=== PATIENT | male | born 2000 | race Caucasian/White ===

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

== ENCOUNTER 2022-11-25 14:09 | Emergency (ER) | payer OTHER ==
[~2022-11-25] VITALS: Ht 180.3 cm; Wt 106.8 kg
[2022-11-25 14:17] VITALS: TEMP 98.4
[2022-11-25] MEDS ORDERED: BACITRACIN 0.9 GM PACKET OINTMENT TP ONE (14:30)
[2022-11-25] MEDS ORDERED: LORazepam 1 MG TABLET PO ONE (14:45)
[2022-11-25 15:08] LABS: ANION GAP 9 mmol/L (8-16); CALCIUM, TOTAL 9.7 mg/dL (8.8-10.5); CARBON DIOXIDE 28 mmol/L (22-29); CHLORIDE 102 mmol/L (98-107); CREATININE 0.99 mg/dL (0.60-1.30); GLOMERULAR FILTR. RATE CALC > 60 mL/min (>60); GLUCOSE,RANDOM 121 mg/dL (70-110); SODIUM SERUM 139 mmol/L (136-145)
[2022-11-25 15:13] LABS: ALANINE AMINOTRANSFERASE 44 U/L (12-78); ALBUMIN 4.7 g/dL (3.4-5.0); ALKALINE PHOSPHATASE 74 U/L (46-116); ASPARTATE AMINOTRANSFERASE 30 U/L (15-37); BILIRUBIN,TOTAL 0.8 mg/dL (0.1-1.0); TOTAL PROTEIN, SERUM 8.6 g/dL (6.4-8.2)
[2022-11-25 15:13] LABS: AMPHET/METH SCREEN,URINE NEGATIVE (NEGATIVE); BARBITURATE SCREEN, URINE NEGATIVE (NEGATIVE); BENZODIAZEPINES SCREEN,URINE NEGATIVE (NEGATIVE); CANNABINOID SCREEN,URINE NEGATIVE (NEGATIVE); COCAINE SCREEN,URINE NEGATIVE (NEGATIVE); METHADONE SCREEN, URINE NEGATIVE (NEGATIVE); OPIATE SCREEN,URINE NEGATIVE (NEGATIVE); PHENCYCLIDINE SCREEN,URINE NEGATIVE (NEGATIVE)
[2022-11-25 15:16] LABS: BASOPHILS % (AUTO) 0.4 % (0.0-2.0); EOSINOPHILS % (AUTO) 0.5 % (1.0-6.0); HEMATOCRIT 49.7 % (41-53); HEMOGLOBIN 16.4 g/dL (13.5-17.5); LYMPHOCYTES # (AUTO) 1.6 K/uL (1.0-4.8); LYMPHOCYTES % (AUTO) 12.6 % (22.0-44.0); MEAN CORPUSCULAR HEMOGLOBIN 29.9 pg (26.0-34.0); MEAN CORPUSCULAR HGB CONC 32.9 G/dL (31.0-37.0); MEAN CORPUSCULAR VOLUME 91 fL (80-100); MONOCYTES # (AUTO) 0.6 K/uL (0.1-1.0); MONOCYTES % (AUTO) 4.9 % (2.0-9.0); NEUTROPHILS # (AUTO) 10.2 K/uL (1.8-7.7); NEUTROPHILS % (AUTO) 81.6 % (40.0-70.0); PLATELET COUNT (AUTO) 325 K/uL (150-450); RED BLOOD CELL COUNT(AUTO) 5.48 MIL/uL (4.50-5.90); RED CELL DISTRIBUTION WIDTH 13.5 % (11.5-14.5)
[2022-11-25 15:23] VITALS: BP 148/58; PULSE 89; RESP 14
[2022-11-25 15:46] LABS: INFLUENZA TYPE A NEGATIVE FOR TYPE A (NEGATIVE); INFLUENZA TYPE B NEGATIVE FOR TYPE B (NEGATIVE)
== END 2022-11-25 17:50 | disposition home or self-care (01) ==
LOC: EMS 14:17
DX: Z04.6 Encounter for general psychiatric examination, requested by authority (principal)
CPT/HCPCS: 80053; 80307; 85025; 87804; 99285

== ENCOUNTER 2022-11-25 15:23 | Inpatient (IN) | payer MEDICAID ==
[~2022-11-25] VITALS: Ht 182.9 cm; Wt 96.6 kg
[2022-11-25] MEDS ORDERED: HALOPERIDOL 5 MG TABLET PO PRN (19:15)
[2022-11-25] MEDS ORDERED: ZOLPIDEM TARTRATE 10 MG TABLET PO PRN (19:15)
[2022-11-25 19:30] VITALS: BP 152/79; PULSE 115; RESP 19; TEMP 98.4; O2SAT 97
[2022-11-25] MEDS ORDERED: NICOTINE 14 MG/24 HOUR PATCH TD PRN (20:45)
[2022-11-25] MEDS ORDERED: GuaiFENesin/D-METHORPHAN [SUGAR-FREE] 200-20MG/10 ML SYRUP UDCUP PO PRN (20:45)
[2022-11-25] MEDS ORDERED: LOPERAMIDE HCL 2 MG CAPSULE PO PRN (20:45)
[2022-11-25] MEDS ORDERED: PETROLATUM,WHITE 28 GM JELLY TP PRN (20:45)
[2022-11-25] MEDS ORDERED: DOCUSATE SODIUM 100 MG CAPSULE PO PRN (20:45)
[2022-11-25] MEDS ORDERED: CloNIDine HCL 0.1 MG TABLET PO PRN (20:45)
[2022-11-25] MEDS ORDERED: MAGNESIUM HYDROXIDE SUSPENSION 30 ML UDCUP PO PRN (20:45)
[2022-11-25] MEDS ORDERED: ONDANSETRON HCL 4 MG TABLET PO PRN (20:45)
[2022-11-25] MEDS ORDERED: MAG HYDROX/AL HYDROX/SIMETH ES 30 ML SUSPENSION UDCUP PO PRN (20:45)
[2022-11-25] MEDS ORDERED: ALBUTEROL SULFATE HFA 90 MCG/PUFF 8 GM INHALER IH PRN (20:45)
[2022-11-25] MEDS: LORazepam 2 MG TABLET PO PRN (23:59)
[2022-11-26 08:03] VITALS: BP 118/64; PULSE 95; RESP 18; TEMP 97.8; O2SAT 98
[2022-11-26] MEDS: IBUPROFEN 400 MG TABLET PO PRN ×2 (08:06→16:13)
[2022-11-26] MEDS: ACETAMINOPHEN 325 MG TABLET PO PRN (12:13)
[2022-11-26] MEDS: LORazepam 2 MG TABLET PO PRN (12:14)
[2022-11-26 16:13] VITALS: RESP 18
[2022-11-26 17:13] VITALS: RESP 16
[2022-11-26] MEDS: QUEtiapine FUMARATE 200 MG TABLET PO SCH (20:00)
[2022-11-26 20:13] VITALS: BP 120/62; PULSE 80; RESP 18; TEMP 98; O2SAT 98
[2022-11-27 07:46] LABS: BASOPHILS % (AUTO) 0.3 % (0.0-2.0); EOSINOPHILS % (AUTO) 1.2 % (1.0-6.0); HEMATOCRIT 45.2 % (41-53); HEMOGLOBIN 14.8 g/dL (13.5-17.5); LYMPHOCYTES # (AUTO) 2.5 K/uL (1.0-4.8); LYMPHOCYTES % (AUTO) 17.3 % (22.0-44.0); MEAN CORPUSCULAR HEMOGLOBIN 29.9 pg (26.0-34.0); MEAN CORPUSCULAR HGB CONC 32.8 G/dL (31.0-37.0); MEAN CORPUSCULAR VOLUME 91 fL (80-100); MONOCYTES # (AUTO) 0.6 K/uL (0.1-1.0); MONOCYTES % (AUTO) 4.2 % (2.0-9.0); PLATELET COUNT (AUTO) 244 K/uL (150-450); RED BLOOD CELL COUNT(AUTO) 4.95 MIL/uL (4.50-5.90); RED CELL DISTRIBUTION WIDTH 13.1 % (11.5-14.5)
[2022-11-27 08:03] VITALS: RESP 18
[2022-11-27] MEDS: MULTIVITAMINS WITH MINERALS, THERAPEUTIC TABLET PO SCH (08:03)
[2022-11-27] MEDS: LORazepam 2 MG TABLET PO PRN (08:03)
[2022-11-27] MEDS: ACETAMINOPHEN 325 MG TABLET PO PRN ×2 (08:03→16:34)
[2022-11-27 08:04] VITALS: BP 142/75; PULSE 106; RESP 20; TEMP 98.3; O2SAT 100
[2022-11-27 08:14] LABS: ALANINE AMINOTRANSFERASE 37 U/L (12-78); ALBUMIN 3.9 g/dL (3.4-5.0); ALKALINE PHOSPHATASE 62 U/L (46-116); ANION GAP 10 mmol/L (8-16); ASPARTATE AMINOTRANSFERASE 20 U/L (15-37); BILIRUBIN,TOTAL 0.9 mg/dL (0.1-1.0); CALCIUM, TOTAL 8.8 mg/dL (8.8-10.5); CARBON DIOXIDE 30 mmol/L (22-29); CHLORIDE 100 mmol/L (98-107); CHOL/HDL RATIO 3.5 (4.2-7.3); CHOLESTEROL 124 mg/dL (131-200); CREATININE 0.98 mg/dL (0.60-1.30); FREE T4 (FREE THYROXINE) 0.96 ng/dL (0.76-1.46); GLOMERULAR FILTR. RATE CALC > 60 mL/min (>60); GLUCOSE,RANDOM 128 mg/dL (70-110); HDL CHOLESTEROL 35 mg/dL (40-60); LDL CHOL (CALC.) 60 mg/dL (0-130); POTASSIUM 3.1 mmol/L (3.5-5.1); SODIUM SERUM 140 mmol/L (136-145); THYROID STIMULATING HORMONE 2.67 uIU/mL (0.36-3.74); TOTAL PROTEIN, SERUM 7.4 g/dL (6.4-8.2); TRIGLYCERIDES 147 mg/dL (15-150)
[2022-11-27 09:03] VITALS: RESP 16
[2022-11-27] MEDS ORDERED: POTASSIUM CHLORIDE 20 MEQ ER TABLET PO ONE (10:45)
[2022-11-27 16:34] VITALS: RESP 17
[2022-11-27 17:34] VITALS: RESP 16
[2022-11-27] MEDS: QUEtiapine FUMARATE 200 MG TABLET PO SCH (20:16)
[2022-11-27 21:24] VITALS: BP 140/87; PULSE 96; RESP 17; TEMP 98.3; O2SAT 99
[2022-11-28] MEDS: IBUPROFEN 400 MG TABLET PO PRN (06:51)
[2022-11-28 08:48] VITALS: BP 144/64; PULSE 67; RESP 18; TEMP 97.9; O2SAT 99
[2022-11-28] MEDS: MULTIVITAMINS WITH MINERALS, THERAPEUTIC TABLET PO SCH (09:46)
[2022-11-28] MEDS: QUEtiapine FUMARATE 200 MG TABLET PO SCH (20:28)
[2022-11-28 21:58] VITALS: BP 137/80; PULSE 90; RESP 18; TEMP 97.9; O2SAT 99
[2022-11-29] MEDS: MULTIVITAMINS WITH MINERALS, THERAPEUTIC TABLET PO SCH (08:44)
[2022-11-29 09:04] VITALS: BP 148/76; PULSE 100; RESP 17; TEMP 97.5; O2SAT 95
[2022-11-29] MEDS: LORazepam 2 MG TABLET PO PRN (10:34)
[2022-11-29 20:10] VITALS: BP 138/78; PULSE 90; RESP 18; TEMP 97.8; O2SAT 97
[2022-11-29] MEDS: QUEtiapine FUMARATE 200 MG TABLET PO SCH (20:35)
[2022-11-30 08:12] VITALS: BP 139/91; PULSE 97; RESP 19; TEMP 97.7; O2SAT 98
[2022-11-30 08:12] LABS: BASOPHILS % (AUTO) 0.7 % (0.0-2.0); EOSINOPHILS % (AUTO) 1.5 % (1.0-6.0); HEMATOCRIT 43.4 % (41-53); HEMOGLOBIN 14.6 g/dL (13.5-17.5); LYMPHOCYTES # (AUTO) 2.4 K/uL (1.0-4.8); LYMPHOCYTES % (AUTO) 33.5 % (22.0-44.0); MEAN CORPUSCULAR HEMOGLOBIN 30.6 pg (26.0-34.0); MEAN CORPUSCULAR HGB CONC 33.6 G/dL (31.0-37.0); MEAN CORPUSCULAR VOLUME 91 fL (80-100); MONOCYTES # (AUTO) 0.6 K/uL (0.1-1.0); MONOCYTES % (AUTO) 9.1 % (2.0-9.0); NEUTROPHILS # (AUTO) 3.9 K/uL (1.8-7.7); NEUTROPHILS % (AUTO) 55.2 % (40.0-70.0); PLATELET COUNT (AUTO) 247 K/uL (150-450); RED BLOOD CELL COUNT(AUTO) 4.77 MIL/uL (4.50-5.90)
[2022-11-30] MEDS: MULTIVITAMINS WITH MINERALS, THERAPEUTIC TABLET PO SCH (08:32)
[2022-11-30] MEDS: LORazepam 2 MG TABLET PO PRN (10:12)
[2022-11-30 20:25] VITALS: BP 132/70; PULSE 81; RESP 18; TEMP 98.1; O2SAT 97
[2022-11-30] MEDS: QUEtiapine FUMARATE 200 MG TABLET PO SCH (20:29)
[2022-12-01 08:06] VITALS: BP 132/74; PULSE 84; RESP 17; TEMP 97.7; O2SAT 98
[2022-12-01] MEDS: LORazepam 2 MG TABLET PO PRN (08:39)
[2022-12-01] MEDS: MULTIVITAMINS WITH MINERALS, THERAPEUTIC TABLET PO SCH (08:39)
[2022-12-01 20:13] VITALS: BP 120/77; PULSE 90; RESP 18; TEMP 98.3; O2SAT 96
[2022-12-01] MEDS: QUEtiapine FUMARATE 200 MG TABLET PO SCH (20:31)
[2022-12-02 08:17] VITALS: BP 140/75; PULSE 77; RESP 17; TEMP 97.6; O2SAT 100
[2022-12-02] MEDS: LORazepam 2 MG TABLET PO PRN (09:01)
[2022-12-02] MEDS: MULTIVITAMINS WITH MINERALS, THERAPEUTIC TABLET PO SCH (09:17)
[2022-12-02] MEDS ORDERED: QUET200T PO (18:56)
[2022-12-02] MEDS ORDERED: TRAZ-252 PO (18:56)
[2022-12-02] MEDS: QUEtiapine FUMARATE 200 MG TABLET PO SCH (20:41)
[2022-12-02] MEDS ORDERED: TraZODone HCL 50 MG TABLET PO SCH (21:00)
[2022-12-02 21:16] VITALS: BP 142/99; PULSE 91; RESP 18; TEMP 97.1; O2SAT 96
[2022-12-03 08:03] VITALS: BP 138/93; PULSE 84; RESP 18; TEMP 98; O2SAT 100
[2022-12-03] MEDS: MULTIVITAMINS WITH MINERALS, THERAPEUTIC TABLET PO SCH (08:05)
[2022-12-03] MEDS ORDERED: QUET200T30 PO (10:09)
[2022-12-03] MEDS ORDERED: TRAZ-252 PO (10:09)
== END 2022-12-03 19:00 | disposition home or self-care (01) | DRG 750 ==
LOC: B2S 19:13
PROVIDERS: ADMIT Psychiatry & Neurology Child & Adolescent Psychiatry; ATTEND Psychiatry & Neurology Child & Adolescent Psychiatry
DX: F25.1 Schizoaffective disorder, depressive type (principal); R45.851 Suicidal ideations; D72.829 Elevated white blood cell count, unspecified; F41.9 Anxiety disorder, unspecified; G47.00 Insomnia, unspecified; E87.6 Hypokalemia
CPT/HCPCS: 80053; 80061; 83036; 84132; 84439; 84443; 85025; Q0162

== ENCOUNTER 2023-10-09 03:24 | Inpatient (IN) | payer MEDICAID ==
[~2023-10-09] VITALS: Ht 182.9 cm; Wt 120.7 kg
[~2023-10-09 03:24] MED LIST: QUET200T PO; QUET200T30 PO; TRAZ-252 PO
[2023-10-09 08:21] LABS: GLUCOMETER DEV NAME(LOC) POC.BV; POC SARS-COV2 AG, FIA NEGATIVE (NEGATIVE)
[2023-10-09] MEDS: HALOPERIDOL 5 MG TABLET PO PRN (08:43)
[2023-10-09] MEDS: LORazepam 2 MG TABLET PO PRN (08:43)
[2023-10-09 09:39] VITALS: BP 135/87; PULSE 88; RESP 20; TEMP 97.8; O2SAT 99
[2023-10-09] MEDS: TraZODone HCL 50 MG TABLET PO SCH (20:26)
[2023-10-09] MEDS: ZOLPIDEM TARTRATE 10 MG TABLET PO PRN (20:27)
[2023-10-09] MEDS: QUEtiapine FUMARATE 200 MG TABLET PO SCH (20:27)
[2023-10-09 20:44] VITALS: BP 134/95; PULSE 92; RESP 18; TEMP 98.6
[2023-10-10] MEDS ORDERED: GuaiFENesin/D-METHORPHAN [SUGAR-FREE] 200-20MG/10 ML SYRUP UDCUP PO PRN (07:15)
[2023-10-10] MEDS ORDERED: LOPERAMIDE HCL 2 MG CAPSULE PO PRN (07:15)
[2023-10-10] MEDS ORDERED: MAGNESIUM HYDROXIDE SUSPENSION 30 ML UDCUP PO PRN (07:15)
[2023-10-10] MEDS ORDERED: ALBUTEROL SULFATE HFA 90 MCG/PUFF 8 GM INHALER IH PRN (07:15)
[2023-10-10] MEDS ORDERED: DOCUSATE SODIUM 100 MG CAPSULE PO PRN (07:15)
[2023-10-10] MEDS ORDERED: MAG HYDROX/ALUMINUM HYD/SIMETH ES 30 ML SUSPENSION UDCUP PO PRN (07:15)
[2023-10-10] MEDS ORDERED: ONDANSETRON HCL 4 MG TABLET PO PRN (07:15)
[2023-10-10] MEDS ORDERED: IBUPROFEN 400 MG TABLET PO PRN (07:15)
[2023-10-10] MEDS ORDERED: PETROLATUM,WHITE 28 GM JELLY TP PRN (07:15)
[2023-10-10] MEDS ORDERED: NICOTINE 14 MG/24 HOUR PATCH TD PRN (07:15)
[2023-10-10] MEDS ORDERED: CloNIDine HCL 0.1 MG TABLET PO PRN (07:15)
[2023-10-10 09:19] VITALS: BP 145/86; PULSE 121; RESP 18; TEMP 97.8; O2SAT 98
[2023-10-10 21:05] VITALS: BP 120/75; PULSE 92; RESP 17; TEMP 97.7; O2SAT 96
[2023-10-11 08:16] VITALS: BP 123/71; PULSE 100; RESP 18; TEMP 97; O2SAT 95
[2023-10-11 08:56] LABS: HEMOGLOBIN A1C 5.1 % (3.8-5.6)
[2023-10-11 09:44] LABS: CHOL/HDL RATIO 3.5 (4.2-7.3); THYROID STIMULATING HORMONE 1.63 uIU/mL (0.36-3.74)
[2023-10-11] MEDS: ACETAMINOPHEN 325 MG TABLET PO PRN (16:04)
[2023-10-11 19:03] VITALS: RESP 16
[2023-10-11 20:48] VITALS: BP 130/71; PULSE 87; TEMP 97.6; O2SAT 98
[2023-10-12 08:07] VITALS: BP 141/97; PULSE 95; RESP 14; TEMP 97.1; O2SAT 96
[2023-10-12 10:44] VITALS: RESP 16
[2023-10-12 20:10] VITALS: BP 120/78; PULSE 87; TEMP 97.8; O2SAT 96
[2023-10-12 20:13] VITALS: BP 120/78; PULSE 87; TEMP 97.8; O2SAT 96
[2023-10-13 08:08] VITALS: BP 134/76; PULSE 100; RESP 17; TEMP 97.2; O2SAT 96
[2023-10-13 08:40] LABS: ALCOHOL, URINE DRUG SCREEN NEGATIVE (NEGATIVE); AMPHET/METH SCREEN,URINE NEGATIVE (NEGATIVE); BARBITURATE SCREEN, URINE NEGATIVE (NEGATIVE); BENZODIAZEPINES SCREEN,URINE NEGATIVE (NEGATIVE); CANNABINOID SCREEN,URINE NEGATIVE (NEGATIVE); COCAINE SCREEN,URINE NEGATIVE (NEGATIVE); METHADONE SCREEN, URINE NEGATIVE (NEGATIVE); OPIATE SCREEN,URINE NEGATIVE (NEGATIVE); PHENCYCLIDINE SCREEN,URINE NEGATIVE (NEGATIVE)
[2023-10-13 09:08] LABS: APPEARANCE,URINE CLEAR (CLEAR); BILIRUBIN,URINE NEGATIVE (NEGATIVE); COLOR,URINE COLORLESS (YELLOW); GLUCOSE, URINE (UA) NEGATIVE (NEGATIVE); KETONES,URINE NEGATIVE (NEGATIVE); LEUKOCYTE ESTERASE ,URINE NEGATIVE (NEGATIVE); NITRATE,URINE NEGATIVE (NEGATIVE); OCCULT BLOOD,URINE NEGATIVE (NEGATIVE); PROTEIN,URINE NEGATIVE (NEGATIVE); SPECIFIC GRAVITIY, URINE 1.003 (1.003-1.030); UROBILINOGEN,URINE <=1.0 mg/dL (<=1.0)
[2023-10-13 19:44] VITALS: RESP 20
[2023-10-13 20:14] VITALS: BP 132/81; PULSE 80; TEMP 97.8; O2SAT 94
[2023-10-13 20:17] VITALS: BP 132/81; PULSE 80; TEMP 97.8; O2SAT 94
[2023-10-14 08:27] VITALS: BP 142/84; PULSE 103; RESP 18; TEMP 97.7; O2SAT 99
[2023-10-14] MEDS: MULTIVITAMINS WITH MINERALS, THERAPEUTIC TABLET PO SCH (12:05)
== END 2023-10-14 17:15 | disposition left against medical advice (07) | DRG 750 ==
LOC: B3A 03:40
PROVIDERS: ADMIT Psychiatry & Neurology Psychiatry; ATTEND Psychiatry & Neurology Psychiatry
PROC: GZHZZZZ Group Psychotherapy (ICD-10-PCS; principal; 2023-10-10)
PROC: GZ51ZZZ Individual Psychotherapy, Behavioral (ICD-10-PCS; 2023-10-10)
DX: F25.0 Schizoaffective disorder, bipolar type (principal); R45.851 Suicidal ideations; F41.9 Anxiety disorder, unspecified; G47.00 Insomnia, unspecified; Z20.822 Contact with and (suspected) exposure to COVID-19; F15.10 Other stimulant abuse, uncomplicated; F12.10 Cannabis abuse, uncomplicated; R03.0 Elevated blood-pressure reading, without diagnosis of hypertension; Z53.29 Procedure and treatment not carried out because of patient's decision for other reasons
CPT/HCPCS: 80061; 80307; 81003; 83036; 84443

== ENCOUNTER 2025-02-20 18:31 | Inpatient (IN) | payer MEDICAID ==
[~2025-02-20] VITALS: Ht 180.3 cm; Wt 102.2 kg
[~2025-02-20 18:31] MED LIST changes: -QUET200T PO
[2025-02-20] MEDS: LORazepam 2 MG/ML VIAL IM ONE (20:20)
[2025-02-20 20:40] LABS: GLUCOMETER DEV NAME(LOC) POC.BV; POC SARS-COV2 AG, FIA NEGATIVE (NEGATIVE)
[2025-02-21 07:02] VITALS: RESP 18
[2025-02-21] MEDS ORDERED: ALBUTEROL SULFATE HFA 90 MCG/PUFF 8 GM INHALER IH PRN (07:30)
[2025-02-21] MEDS ORDERED: IBUPROFEN 600 MG TABLET PO PRN (07:30)
[2025-02-21] MEDS ORDERED: MAG HYDROX/ALUMINUM HYD/SIMETH ES 30 ML SUSPENSION UDCUP PO PRN (07:30)
[2025-02-21] MEDS ORDERED: BACITRACIN 28 GM OINTMENT TP PRN (07:30)
[2025-02-21] MEDS ORDERED: PETROLATUM,WHITE 28 GM JELLY TP PRN (07:30)
[2025-02-21] MEDS ORDERED: LOPERAMIDE HCL 2 MG CAPSULE PO PRN (07:30)
[2025-02-21] MEDS ORDERED: OMEPRAZOLE 20 MG CAPSULE PO PRN (07:30)
[2025-02-21] MEDS ORDERED: BENZOCAINE/MENTHOL [CEPACOL] LOZENGE PO PRN (07:30)
[2025-02-21] MEDS ORDERED: DOCUSATE SODIUM 100 MG CAPSULE PO PRN (07:30)
[2025-02-21] MEDS ORDERED: MAGNESIUM HYDROXIDE SUSPENSION 30 ML UDCUP PO PRN (07:30)
[2025-02-21 08:11] VITALS: BP 134/89; PULSE 100; RESP 17; TEMP 97.4; O2SAT 98
[2025-02-21] MEDS: LITHIUM CARBONATE 300 MG CAPSULE PO SCH (16:50)
[2025-02-21 20:13] VITALS: BP 100/72; PULSE 86; RESP 18; TEMP 97.3; O2SAT 98
[2025-02-22 08:25] VITALS: BP 140/75; PULSE 77; RESP 18; TEMP 97.3; O2SAT 99
[2025-02-22 09:13] LABS: PLATELET COUNT (AUTO) 267 K/uL (150-450); RED BLOOD CELL COUNT(AUTO) 5.00 MIL/uL (4.50-5.90); RED CELL DISTRIBUTION WIDTH 13.1 % (11.5-14.5); WHITE BLOOD COUNT (AUTO) 6.2 K/uL (4.5-11.0)
[2025-02-22 09:40] LABS: APPEARANCE,URINE CLEAR (CLEAR); GLUCOSE, URINE (UA) NEGATIVE (NEGATIVE); LEUKOCYTE ESTERASE ,URINE NEGATIVE (NEGATIVE); NITRATE,URINE NEGATIVE (NEGATIVE); OCCULT BLOOD,URINE NEGATIVE (NEGATIVE); PH,URINE DRUG SCREEN 8.0 (5.0-8.0); SPECIFIC GRAVITIY, URINE 1.022 (1.003-1.030)
[2025-02-22 09:47] LABS: ALCOHOL, URINE DRUG SCREEN NEGATIVE (NEGATIVE); AMPHET/METH SCREEN,URINE NEGATIVE (NEGATIVE); BARBITURATE SCREEN, URINE NEGATIVE (NEGATIVE); CANNABINOID SCREEN,URINE POSITIVE (NEGATIVE); COCAINE SCREEN,URINE NEGATIVE (NEGATIVE); METHADONE SCREEN, URINE NEGATIVE (NEGATIVE)
[2025-02-22 09:52] LABS: ASPARTATE AMINOTRANSFERASE 37 U/L (15-37); CALCIUM, TOTAL 9.0 mg/dL (8.8-10.5); CHOL/HDL RATIO 3.6 (4.2-7.3); CREATININE 0.80 mg/dL (0.60-1.30); GLOMERULAR FILTR. RATE CALC > 60 mL/min (>60); GLUCOSE,RANDOM 83 mg/dL (70-110); LDL CHOL (CALC.) 66 mg/dL (0-130); SODIUM SERUM 140 mmol/L (136-145); TOTAL PROTEIN, SERUM 8.1 g/dL (6.4-8.2); UREA NITROGEN, BLOOD 8 mg/dL (7-18)
[2025-02-22 20:17] VITALS: BP 142/73; PULSE 73; RESP 18; TEMP 98.3; O2SAT 96
[2025-02-22] MEDS: ZOLPIDEM TARTRATE 10 MG TABLET PO PRN (20:51)
[2025-02-22] MEDS: NICOTINE POLACRILEX 4 MG LOZENGE PO PRN (22:58)
[2025-02-23 08:00] VITALS: BP 148/84; PULSE 98; RESP 16; TEMP 98.2; O2SAT 99
[2025-02-23] MEDS: ACETAMINOPHEN 325 MG TABLET PO PRN (10:08)
[2025-02-23 20:34] VITALS: BP 139/81; PULSE 100; RESP 18; TEMP 98.2; O2SAT 98
[2025-02-24 10:09] VITALS: BP 120/82; RESP 16; TEMP 98.3; O2SAT 96
[2025-02-24] MEDS: ONDANSETRON 4 MG TABLET PO PRN (11:53)
[2025-02-24 21:59] VITALS: BP 123/77; PULSE 67; RESP 18; TEMP 97.9; O2SAT 98
[2025-02-25] MEDS ORDERED: LITH300C3 PO (10:07)
[2025-02-25] MEDS ORDERED: RISP-32 PO (10:07)
[2025-02-25 13:56] VITALS: BP 139/71; PULSE 111; RESP 18; TEMP 97.1; O2SAT 99
[2025-02-27 07:07] LABS: 9-OH RISPERIDONE LEVEL 4.1 ng/ml (Not Estab.)
== END 2025-02-25 14:23 | disposition home or self-care (01) | DRG 761 ==
LOC: B3A 19:53
PROVIDERS: ADMIT Psychiatry & Neurology Psychiatry; ATTEND Psychiatry & Neurology Psychiatry
DX: F25.9 Schizoaffective disorder, unspecified (principal); E66.9 Obesity, unspecified; F41.9 Anxiety disorder, unspecified; G47.00 Insomnia, unspecified; K59.00 Constipation, unspecified; F32.A Depression, unspecified; Z20.822 Contact with and (suspected) exposure to COVID-19; Z87.891 Personal history of nicotine dependence; Z68.31 Body mass index [BMI] 31.0-31.9, adult
CPT/HCPCS: 80053; 80061; 80178; 80307; 80342; 81003; 83036; 84439; 84443; 85025; Q0162